=== PATIENT | female | born 1990 | race African-American/Black ===

== ENCOUNTER 2019-08-05 18:01 | Emergency (ER) | payer OTHER ==
[~2019-08-05] VITALS: Ht 154.9 cm; Wt 45.4 kg
[~2019-08-05 18:01] MED LIST: NORCO 5-325 TA1 EACH PO
[2019-08-05 18:47] LABS: ABSOLUTE NEUTROPHILS 1.5 thou/uL (1.4-8.2); EOSINOPHILS 1.1 % (0.0-3.0); HEMATOCRIT 43.8 % (37.0-47.0); HEMOGLOBIN 14.7 gm/dL (12.0-15.0); LYMPHOCYTES 56.3 % (24.0-44.0); MCH 29.9 pg (26.0-34.0); MCHC 33.6 g/dL (28.0-37.0); MONOCYTES 6.4 % (1.0-8.0); PLATELET COUNT 237 thou/uL (150-400); POLYS 35.2 % (36.0-66.0); RBC 4.92 mil/uL (4.20-5.00); RDW 13.6 % (10.5-14.5); WBC 4.4 thou/uL (4.0-11.0)
[2019-08-05 18:54] LABS: CALCIUM 9.7 mg/dL (8.5-10.1); CREATININE 0.8 mg/dL (0.6-1.0); POTASSIUM 3.8 mmol/L (3.5-5.1)
[2019-08-05] MEDS ORDERED: PROAIR HFA8.5 GM INH (20:09)
[2019-08-05 20:26] VITALS: BP 114/71
--- NOTE | 2019-08-06 08:22 | EKG ---
[facility] [place] [address] ELECTROCARDIOGRAM REPORT Name: MJ MACK Room #: DEP [facility]#: [id number] Admission: 08/05/19 Attend Phys: Discharge: 08/05/19 Date of : [birth year] Report #: [id number] THIS REPORT FOR: cc: FAM - No family physician/PCP FAM - No family physician/PCP Kuldeep Rob MD [facility] THIS REPORT FOR: //name// [facility] ED Test Date: 2019-08-05 Test Time: 18:10:11 Pat Name: MJ MACK Department: Room: Gender: Chair Springer: CORY : 1990 Requested By: Angela Tijerina Order Number: [id number] MD: Kuldeep Rob Measurements Intervals [place] Rate: 108 P: 77 CO: 192 QRS: 75 QRSD: 82 T: 41 QT: 324 QTc: 435 Interpretive Statements Sinus tachycardia Otherwise normal tracing No previous ECG available for comparison Electronically Signed On 08-06-2019 8:21:24 CDT by Kuldeep Rob [email or web address] <ELECTRONICALLY SIGNED> By: Kuldeep Rob MD, [facility] 08/06/19 0821 181 09 Kuldeep Rob MD, FACC /EPI
== END 2019-08-05 20:26 | disposition home or self-care (01) ==
LOC: ER 18:01
PROVIDERS: Nurse Practitioner Family
DX: B34.9 Viral infection, unspecified (principal); R06.00 Dyspnea, unspecified; R07.89 Other chest pain

== ENCOUNTER 2020-03-23 09:15 | Emergency (ER) | payer OTHER ==
[~2020-03-23] VITALS: Ht 157.5 cm; Wt 52.2 kg
[~2020-03-23 09:15] MED LIST changes: +PROAIR HFA8.5 GM INH
--- NOTE | 2020-03-23 10:18 | EKG ---
[facility] [place] [address] ELECTROCARDIOGRAM REPORT Name: MJ MACK Room #: PRE M.R.#: [id number] Admission: Attend Phys: Discharge: Date of : [birth year] Report #: [id number] THIS REPORT FOR: cc: JESUS - Ariana family physician/PCP JESUS - Ariana family physician/PCP Juan Wolff MD [facility] ~ THIS REPORT FOR: //name// [facility] ED Test Date: 2020-03-23 Test Time: 09:20:55 Pat Name: MJ MCAK Department: Room: Gender: F Technology Training Associate: CRISTY : 1990 Requested By: Sal Spain Order Number: [id number] MD: Juan Wolff Measurements Intervals [place] Rate: 219 P: 40 MA: 111 QRS: 42 QRSD: 89 T: 33 QT: 259 QTc: 495 Interpretive Statements Supraventricular tachycardia ST depression, probably rate related Compared to ECG 08/05/2019 18:10:11 ST (T wave) deviation now present Sinus tachycardia no longer present Electronically Signed On 03-23-2020 10:18:19 [employer] HISTORY COLLECTIONS CURATOR by Juan Wolff [email or web address] <ELECTRONICALLY SIGNED> By: Juan Wolff MD, FACC 03/23/20 1018 9 9 Juan Wolff MD, [facility] /EPI
[2020-03-23 10:21] LABS: ABSOLUTE NEUTROPHILS 1.7 thou/uL (1.4-8.2); BASOPHILS 0.6 % (0.0-2.0); EOSINOPHILS 0.9 % (0.0-3.0); HEMATOCRIT 41.4 % (37.0-47.0); HEMOGLOBIN 13.8 gm/dL (12.0-15.0); LYMPHOCYTES 40.7 % (24.0-44.0); MCH 29.8 pg (26.0-34.0); MCHC 33.4 g/dL (28.0-37.0); MCV 89.4 fL (80.0-100.0); MONOCYTES 6.8 % (1.0-8.0); PLATELET COUNT 197 thou/uL (150-400); RBC 4.63 mil/uL (4.20-5.00); RDW 13.9 % (10.5-14.5); WBC 3.4 thou/uL (4.0-11.0)
[2020-03-23 10:30] LABS: CALCIUM 9.1 mg/dL (8.5-10.1); CREATININE 0.9 mg/dL (0.6-1.0); POTASSIUM 3.7 mmol/L (3.5-5.1)
[2020-03-23 10:36] LABS: ALBUMIN 4.2 g/dL (3.4-5.0); MAGNESIUM 1.9 mg/dL (1.8-2.4); TOTAL BILIRUBIN 0.3 mg/dL (0.2-1.0); TOTAL PROTEIN 8.1 g/dL (6.4-8.2)
[2020-03-23 13:12] VITALS: BP 115/98
--- NOTE | 2020-03-23 15:22 | EKG ---
[facility] [place] [address] ELECTROCARDIOGRAM REPORT Name: MJ MACK Room #: DEP [facility]#: [id number] Admission: 03/23/20 Attend Phys: Discharge: 03/23/20 Date of : [birth year] Report #: [id number] THIS REPORT FOR: cc: JESUS - Ariana family physician/PCP JESUS - Ariana family physician/PCP Juan Wolff MD [facility]IN [facility] THIS REPORT FOR: //name// [facility] ED Test Date: 2020-03-23 Test Time: 11:28:12 Pat Name: MJ MACK Department: Room: Gender: F Vest Baster: [facility] : 1990 Requested By: Sal Spain Order Number: [id number] MD: Juan Wolff Measurements Intervals [place] Rate: 96 P: 78 NV: 180 QRS: 73 QRSD: 78 T: 55 QT: 316 QTc: 400 Interpretive Statements Sinus rhythm Baseline wander in lead(s) V5 Compared to ECG 03/23/2020 09:20:55 Supraventricular tachycardia no longer present ST (T wave) deviation no longer present Electronically Signed On 03-23-2020 15:21:51 RING ROLLING MACHINE OPERATOR by Juan Wolff [email or web address] <ELECTRONICALLY SIGNED> By: Juan Wolff MD, FAC 03/23/20 1521 [id number] Juan Wolff MD, [facility] /EPI
== END 2020-03-23 13:10 | disposition home or self-care (01) ==
LOC: ER 09:15
PROVIDERS: Emergency Medicine
DX: I47.1 Supraventricular tachycardia (principal); Z79.899 Other long term (current) drug therapy